=== PATIENT | female | born 1990 | race Caucasian/White ===

== ENCOUNTER 2024-04-07 12:15 | Emergency (ER) | payer MEDICAID, SELFPAY ==
[2024-04-07 12:16] VITALS: BP 160/100; PULSE 80; RESP 20; TEMP 36.2; O2SAT 100; BMI 43.2
--- NOTE | 2024-04-07 13:11 | EX.ED.VIS.UR ---
HPI HPI - URI History of Present Illness Chief Complaint: Ear Problem Detail of Chief Complaint: Right-sided earache since last evening. No cough or sore throat. Informant: patient and spouse/S.O. Onset/Context/Timing Onset: Today and Yesterday Context: Gradual Onset Timing: Continuous Current Severity: Mild Maximum Severity: Mild Narrative Narrative: 34-year-old female complaining of right ear ache since last evening. Denies any trauma. Said her boyfriend put some peroxide and use a Q-tip and got some earwax out. Today they went to the urgent care who could not see any specific with her ear and we have sent her in for further evaluation. She denies a sore throat or fever. She denies any ear trauma. No discharge or drainage. Prior similar symptoms: Yes Recent Illness/Hospitalization: No ROS ROS ED ROS Narrative Atraumatic right ear pain. Constitutional Constitutional ED: Denies chills or fever(s) Eyes Eyes: Denies blurry vision ENT ENT ED: Denies ear pain Cardiovascular Cardiovascular: Denies chest pain or palpitations Respiratory/Chest Respiratory/Chest: Denies cough or dyspnea Gastrointestinal Gastrointestinal: Denies abdominal pain Genitourinary Genitourinary ED: Denies dysuria or hematuria Musculoskeletal Musculoskeletal: Denies arthralgias Integumentary Denies abscess or Abrasions Neurologic Neurologic: Denies headache(s) Psychiatric Psychiatric: Denies anxiety or depression Endocrine Endocrinology: Denies cold intolerance Hematologic/Lymphatic Hematologic/Lymphatic: Denies easy bleeding Allergic/Immunologic Allergic/Immunologic ED: Denies mouth swelling PFSH PFSH Allergy/AdvReac Type Severity Reaction Status Date / Time amoxicillin Allergy Intermediate Hives Verified 04/07/24 12:18 latex Allergy Intermediate Hives Verified 04/07/24 12:18 Social History Smoking Status: Current every day smoker tobacco type: cigarettes and e-cigarettes EXAM Physical Exam Narrative Exam Narrative: 15-year-old female no acute distress vital signs stable afebrile. H EENT exam pupils round react to light. Posterior pharynx minimal erythema on the right tonsil. No abscess. No swelling. No trouble swallowing or breathing. Left ear canal and drum are unremarkable. Right ear canal and drum are unremarkable. There is no swelling. There is no otitis externa. There is no otitis media. There is no perforation. There is no blood or discharge. There is minimal wax. The mastoid on the right is nontender without any redness or swelling. Neck is nontender without any lymphadenopathy. The right eustachian tubes nontender. Lungs clear. Heart regular rhythm. Abdomen soft. Moving all 4 extremities. Awake and alert. Const Vital Signs: 04/07/24 12:16 Temperature 97.2 F L Temperature Source Temporal Pulse Rate 80 Respiratory Rate 20 H Blood Pressure 160/100 H Blood Pressure Mean 120 Pulse Ox 100 Oxygen Delivery Method Room Air Positive well nourished and well developed; Negative for cachectic or contractures General Appearance ED: well developed and NAD; Negative for cachectic, contractures, cyanotic, diaphoretic or pallor Nutritional Appearance: Negative for cachectic HEENT Reports moist mucous membranes HEENT Narrative: Minimal right tonsillar erythema. No exudate. No trouble swallowing or breathing. No peritonsillar abscess. normocephalic and atraumatic; Negative for scalp tenderness Face and Sinus: Negative for sinus tenderness Teeth and Gingiva: Negative for caries Throat: posterior oropharynx normal Eyes PERRL and EOMs intact bilaterally Neck no lymphadenopathy, supple, no meningeal signs and no JVD General: Negative for anterior neck swelling, lymphadenopathy or other Resp normal respiratory effort and clear to auscultation bilaterally Effort and Inspection: Negative for retractions Auscultation: Negative for rales, rhonchi, wheezes or diminished lung sounds Cardio S1 normal heart sound, S2 normal heart sound and no murmurs Rate: regular rate Rhythm: regular rhythm GI non-tender, non-distended and no masses Auscultation: normoactive bowel sounds Palpation: soft; Negative for tender or guarding Back/Spine no CVA tenderness and normal ROM General Back: Negative for CVA tenderness Cervical Spine: Negative for cervical spine tenderness Thoracic Spine / Upper Back: Negative for thoracic spinal tenderness Lumbar Spine / Lower Back: Negative for lumbar spinal tenderness Sacrum: Negative for tenderness Extremity normal to inspection and full ROM General Extremety ED: Negative for cyanosis or tenderness General Extremity: Negative for cyanosis Neuro oriented x3 and CN's II-XII intact bilaterally Sensorium / Orientation: alert, oriented to person, oriented to place and oriented to time Motor Exam: strength 5/5 throughout; Negative for general weakness or strength abnormal Psych mental status grossly normal Attitude: No agitated Mood & Affect: Negative for depressed, anxious or tearful Skin General Skin Exam: Negative for jaundice or pallor Lesions: no lesions Rashes: no rashes Trauma: Negative for abrasion or laceration MDM MDM MDM Narrative Medical decision making narrative: 34-year-old female with right earache. There is no signs of either otitis media or externa. No mastoiditis. Motrin Tylenol for pain. If not improving either return here or follow-up with ENT. Patient is comfortable with the plan. I do not feel she needs antibiotics or Corticosporin otic drops because there is no signs of any trauma to the ear canal. Nor any swelling. Discharge Plan Triage Chief Complaint: Ear Problem ED Provider: Keith Sebastian Dx/Rx/DC Orders Clinical Impression: Acute ear pain Instructions: ED Earache Without Infection (Adult) Primary Care Provider: NOT,DEFINED Referrals: Mateus Gallegos MD [Med Staff - Active Staff] - 1 Week if not improving NOT,DEFINED [Primary Care Provider] - Activity Restrictions/Additional Instructions: Currently there is no signs of ear canal infection, nor trauma nor middle ear infection. There is no signs of mastoiditis. Motrin and Tylenol for pain. Do not put anything in your ear. If not improving or getting worse either follow-up here for repeat evaluation in several days or go to the ear nose and throat doctor Dr. Mateus Gallegos across the street. Call their office for an appointment if not improving. Print Language: [place] Disposition Disposition: Home, Self Care
== END 2024-04-07 13:33 | disposition home or self-care (01) ==
LOC: ED 13:26
PROVIDERS: Emergency Provider Emergency Medicine; Visit Provider Emergency Medicine
DX: H92.01 Otalgia, right ear (principal); F17.210 Nicotine dependence, cigarettes, uncomplicated; F17.290 Nicotine dependence, other tobacco product, uncomplicated
CPT/HCPCS: 99282